=== PATIENT | female | born 1945 | race Caucasian/White ===

== ENCOUNTER 2017-08-31 21:43 | Emergency (ER) | payer OTHER ==
[~2017-08-31] VITALS: Ht 172.7 cm; Wt 70.3 kg
[2017-08-31 21:45] VITALS: TEMP 36.7; O2SAT 99; Ht 172.7 cm; Wt 70.3 kg
[2017-08-31 23:17] LABS: BASO % 0.7 %; BASO ABS # 0.07 K/uL (0-0.2); EOS % 1.1 %; EOS ABS # 0.11 K/uL (0-0.5); HEMATOCRIT 43.5 % (37-47); HEMOGLOBIN 14.9 g/dL (12.0-16.0); IG# 0.01 K/uL (0.00-0.02); LYMPH % 11.1 %; LYMPH ABS # 1.12 K/uL (1.2-3.4); MEAN CELL VOLUME 96.5 fL (80-100); MEAN CORPUSCULAR HGB CONC 34.3 g/dl (32-36); MEAN PLATELET VOLUME 10.9 fL (7.4-10.4); MONO % 5.6 %; MONO ABS # 0.57 K/uL (0.11-0.59); NEUT % 81.4 %; NEUT ABS # 8.24 K/uL (1.4-6.5); PLATELET COUNT 213 K/uL (130-400); RED CELL DISTRIBUTION WIDTH CV 12.2 % (11.5-14.5); RED CELL DISTRIBUTION WIDTH SD 43.1 fL (36.4-46.3); WHITE BLOOD COUNT 10.12 K/uL (4.8-10.8)
[2017-08-31 23:21] LABS: PTT PATIENT 27.2 SECONDS (21.0-31.0)
[2017-08-31] MEDS ORDERED: DILT-119 PO (23:36)
[2017-08-31] MEDS ORDERED: LISI20TA3 PO (23:36)
[2017-08-31] MEDS ORDERED: SODIUM CHLORIDE 0.9% 1000ML 1,000 ML IV STA (23:37)
[2017-08-31] MEDS ORDERED: HYDR-2977 PO (23:37)
[2017-08-31] MEDS ORDERED: MULT-506 PO (23:38)
[2017-08-31] MEDS ORDERED: LEVO150T PO (23:38)
[2017-08-31] MEDS ORDERED: ASPI-232 PO (23:39)
[2017-08-31] MEDS ORDERED: ATOR10TA82 PO (23:40)
[2017-08-31 23:44] LABS: ALBUMIN 3.9 gm/dl (3.4-5.0); ALKALINE PHOSPHATASE 103 U/L (45-117); ALT/SGPT 29 U/L (12-78); BLOOD UREA NITROGEN 21 mg/dl (7-18); CALCIUM 9.8 mg/dl (8.5-10.1); CARBON DIOXIDE 25 mmol/L (21-32); CREATININE 1.06 mg/dl (0.60-1.20); GLUCOSE 118 mg/dl (70-99); TOTAL PROTEIN 7.6 gm/dl (6.4-8.2)
[2017-08-31 23:52] LABS: POTASSIUM 3.9 mmol/L (3.5-5.1); SODIUM 139 mmol/L (136-145)
--- NOTE | 2017-09-01 00:01 | EMERGENCY ROOM VISIT NOTE ---
History Report prepared by Osvaldo: Nuria Khan Under the Supervision of: Dr. Fer Felix M.D. First contact with patient: 23:26 Chief Complaint: HYPERTENSION Stated Complaint: ILLNESS History of Present Illness The patient is a 72 year old female who presents to the Emergency Room with complaints of constant hypertension starting a month ago. The patient sates that she has had recently diagnosed hypertension and that they have been treating it in an attempt to get it down. She reports that she has had certain medications increased and new ones added. She states that she thought they were working because she was feeling better this past week. The patient reports that she has been seeing cardiology because they think it may be related to a cardiac problem. She reports that she is on a heart monitor and her Cardizem has been doubled. She reports that they have tested her thyroid, a nuclear stress test, and a vascular echo that were all negative. She reports that in her labs her ACTH was high and an associate dean of students appointment is set up for a month from now. The patient states that tonight her right hand started throbbing out of nowhere and continued to get worse. She notes that she hit it earlier today, but thought nothing of it. She reports that she then went to care for her 's wound and felt like she was going to pass out. The patient complains of chills, being flushed, and shaking. The patient notes a history of Braden's and is set up to have an appointment with a career resource technician. The patient denies her hand being swollen, diarrhea, fevers, shortness of breath, change in appetite, and urinary symptoms. The patient notes that her heart rate and blood pressure were normal all her life up until a month ago. Source of History: patient Onset: a month ago Position: other (global) Quality: other (hypertension) Timing: constant Associated Symptoms: + chills, No fevers, No SOB, No diarrhea, No urinary symptoms Note: The patient complains of right hand pain, feeling like she is going to pass out , shaking, and feeling flushed. The patient denies her hand being swollen and renner in appetite. Review of Systems See HPI for pertinent positives & negatives. A total of 10 systems reviewed and were otherwise negative. Past Medical & Surgical Medical Problems: (1) HTN (hypertension) (2) Medina syndrome Family History No pertinent family history Social History Smoking Status: Never Smoker Marital Status: Housing Status: lives with significant other Occupation Status: retired Current/Historical Medications Scheduled Aspirin (Aspir-81), 81 MG PO DAILY Atorvastatin (Lipitor), 10 MG PO DAILY Diltiazem Hcl Ext Rel (Tiazac), 360 MG PO DAILY Hydralazine HCl (Hydralazine HCl), 10 MG PO TID Levothyroxine Sodium (Synthroid), 150 MCG PO DAILY Lisinopril (Prinivil), 20 MG PO BID Multivitamin (Multivitamin), 1 TAB PO DAILY Allergies Coded Allergies: No Known Allergies (Unverified , 08/31/17) Physical Exam Vital Signs Date Time Temp Pulse Resp B/P (MAP) Pulse Ox O2 Delivery O2 Flow Rate FiO2 09/01/17 03:09 74 18 132/85 97 09/01/17 02:41 80 18 138/88 97 Room Air 09/01/17 02:30 77 09/01/17 01:45 98 18 142/91 95 Room Air 09/01/17 01:30 96 18 141/97 97 Room Air 09/01/17 01:15 99 18 141/89 95 Room Air 09/01/17 01:00 99 18 141/96 96 Room Air 09/01/17 00:45 96 18 142/92 96 Room Air 09/01/17 00:32 97 18 141/92 96 Room Air 09/01/17 00:22 90 18 150/100 97 Room Air 09/01/17 00:00 97 18 156/91 98 Room Air 08/31/17 23:44 94 18 163/113 97 Room Air 08/31/17 22:47 103 20 141/103 98 Room Air 08/31/17 22:29 81 08/31/17 21:45 36.7 79 18 170/105 99 Room Air 08/31/17 21:45 99 Room Air Physical Exam GENERAL: Patient is well appearing and in no acute distress. The patient is flushed. EYES: No scleral icterus, unremarkable pupils. ENT: Mucous membranes mildly dry appearing, no nasal congestion. NECK: No masses appreciated, no meningismus, trachea is midline. RESPIRATORY: No dyspnea. Clear to auscultation and equal bilaterally. No wheeze , no rhonchi. CARDIOVASCULAR: Tachycardic rate and regular rhythm. No murmurs, rubs, gallops appreciated. GASTROINTESTINAL: Abdomen soft, nontender, no peritonitis. Bowel sounds positive. No masses appreciated. BACK: No midline tenderness, no CVA tenderness EXTREMITIES: Normal motion all extremities, no cyanosis, no edema. Erythema of bilateral hands. Good pulses. No swelling. NEUROLOGIC: Alert and oriented, no acute motor or sensory deficits, no focal weakness, cranial nerves grossly intact. SKIN: No rash, no jaundice, no diaphoresis. Medical Decision & Procedures Laboratory Results 08/31/17 22:41 Red Blood Count 4.51, Mean Corpuscular Volume 96.5, Mean Corpuscular Hemoglobin 33.0, Mean Corpuscular Hemoglobin Concent 34.3, Mean Platelet Volume 10.9, Neutrophils (%) (Auto) 81.4, Lymphocytes (%) (Auto) 11.1, Monocytes (%) (Auto) 5.6, Eosinophils (%) (Auto) 1.1, Basophils (%) (Auto) 0.7, Neutrophils # (Auto) 8.24, Lymphocytes # (Auto) 1.12, Monocytes # (Auto) 0.57, Eosinophils # (Auto) 0.11, Basophils # (Auto) 0.07 08/31/17 22:41 Test 08/31/17 22:41 08/31/17 22:45 White Blood Count 10.12 K/uL (4.8-10.8) Red Blood Count 4.51 M/uL (4.2-5.4) Hemoglobin 14.9 g/dL (12.0-16.0) Hematocrit 43.5 % (37-47) Mean Corpuscular Volume 96.5 fL (80-100) Mean Corpuscular Hemoglobin 33.0 pg (25-34) Mean Corpuscular Hemoglobin Concent 34.3 g/dl (32-36) Platelet Count 213 K/uL (130-400) Mean Platelet Volume 10.9 fL (7.4-10.4) Neutrophils (%) (Auto) 81.4 % Lymphocytes (%) (Auto) 11.1 % Monocytes (%) (Auto) 5.6 % Eosinophils (%) (Auto) 1.1 % Basophils (%) (Auto) 0.7 % Neutrophils # (Auto) 8.24 K/uL (1.4-6.5) Lymphocytes # (Auto) 1.12 K/uL (1.2-3.4) Monocytes # (Auto) 0.57 K/uL (0.11-0.59) Eosinophils # (Auto) 0.11 K/uL (0-0.5) Basophils # (Auto) 0.07 K/uL (0-0.2) RDW Standard Deviation 43.1 fL (36.4-46.3) RDW Coefficient of Variation 12.2 % (11.5-14.5) Immature Granulocyte % (Auto) 0.1 % Immature Granulocyte # (Auto) 0.01 K/uL (0.00-0.02) Activated Partial Thromboplast Time 27.2 SECONDS (21.0-31.0) Partial Thromboplastin Ratio 1.0 D-Dimer 360 ug/L FEU (0-500) Anion Gap 9.0 mmol/L (3-11) Est Creatinine Clear Calc Drug Dose 49.8 ml/min Estimated GFR () 61.6 Estimated GFR (Non- 53.2 BUN/Creatinine Ratio 19.8 (10-20) Calcium Level 9.8 mg/dl (8.5-10.1) Magnesium Level 2.4 mg/dl (1.8-2.4) Total Bilirubin 0.4 mg/dl (0.2-1) Aspartate Amino Transf (AST/SGOT) 23 U/L (15-37) Alanine Aminotransferase (ALT/SGPT) 29 U/L (12-78) Alkaline Phosphatase 103 U/L (45-117) Troponin I < 0.015 ng/ml (0-0.045) Total Protein 7.6 gm/dl (6.4-8.2) Albumin 3.9 gm/dl (3.4-5.0) Globulin 3.7 gm/dl (2.5-4.0) Albumin/Globulin Ratio 1.1 (0.9-2) Thyroid Stimulating Hormone (TSH) 1.160 uIu/ml (0.300-4.500) Free Thyroxine 1.36 ng/dl (0.80-1.60) Random Cortisol 21.42 mcg/dl Urine Color YELLOW Urine Appearance CLEAR (CLEAR) Urine pH 7.5 (4.5-7.5) Urine Specific [place] 1.009 (1.000-1.030) Urine Protein NEG (NEG) Urine Glucose (UA) NEG (NEG) Urine Ketones NEG (NEG) Urine Occult Blood NEG (NEG) Urine Nitrite NEG (NEG) Urine Bilirubin NEG (NEG) Urine Urobilinogen NEG (NEG) Urine Leukocyte Esterase TRACE (NEG) Urine WBC (Auto) 1-5 /hpf (0-5) Urine RBC (Auto) 0-4 /hpf (0-4) Urine Hyaline Casts (Auto) 1-5 /lpf (0-5) Urine Epithelial Cells (Auto) 0-5 /lpf (0-5) Urine Bacteria (Auto) NEG (NEG) Laboratory results as reviewed by me. Medications Administered Medications (Trade) Dose Ordered Sig/Coleman Route Start Time Stop Time Status Last Admin Dose Admin Sodium Chloride 1,000 ml @ 999 mls/hr Q1H1M STAT IV 08/31/17 23:37 09/01/17 00:37 DC 08/31/17 23:46 999 MLS/HR Labetalol HCl (Normodyne IV) 10 mg NOW STAT IV 09/01/17 00:04 09/01/17 00:05 DC 09/01/17 00:28 10 MG Hydralazine HCl (Apresoline Tab) 25 mg NOW STAT PO 09/01/17 02:33 09/01/17 02:35 DC 09/01/17 02:40 25 MG Hydralazine HCl (Apresoline Tab) 25 mg TID PO 09/01/17 12:00 09/01/17 12:00 DC 09/01/17 03:07 25 MG ECG Per My Interpretation Indication: syncope (near) Rate (beats per minute): 78 Rhythm: sinus rhythm Findings: no acute ischemic change, no ectopy, other (QT-c 453) ED Course 2329: The patient was evaluated in room B2. A complete history and physical exam was performed. 2337: Ordered NSS 1000 ml @ 999 mls/hr IV. 2358: Review of the patient's labs from [facility] show that her ACTH collected at 7 am was 60.4 with a normal range usually at 0-46. 0004: Ordered Labetalol HCl 10 mg IV. 0124: I reevaluated the patient and she is feeling shaky. Her heart rate runs from 95 to 110. She denies any further arm pain. 0125: Discussed the patient's case with Dr. Deleon - [facility] Hospitalist. The patient will be evaluated for further treatment and disposition. 0318: I spoke with Dr. Deleon and he will discharge the patient. Medical Decision Differential: NSR, SVT, PACs, PVCs, Cardiac Dysrhythmia, Endocrine Dysfunction, Electrolyte/Metabolic Abnormality, Pulmonary Embolism, Infectious, GI, amonst other pathologies entertained. 72 yr old female arrives for evaluation of hypertension despite triple antihypertensive therapy as outpatient. Only minor BP issues until about a month ago and BP rapidly trending up requiring multiple more medications added. She has elevated ACTH and Cortisol with normal cardiac work-up, normal electrolytes and no evidence infectious etiology. Dimer negative and without significant SOB thus I do not feel that CT indicated. I suspect this is pituitary issues and have asked hospitalist to evaluate here who feel discharge reasonable. Patient stable and looks well. She is ambulating without difficulty and after Labetalol her BP has improved. HR still a bit on high side. She feels comfortable with going home and will have outpatient endocrine evaluation. Aware can RTED at any time if worsening or other concerns. Medication Reconcilliation Current Medication List: was personally reviewed by me Blood Pressure Screening Patient's blood pressure: Elevated blood pressure Will be further monitored by the hospitalist. Consults Time Called: 0124 Consulting Physician: Dr. Adrienne Armenta Hospitalist Returned Call: 0125 Discussed the patient's case with Dr. Adrienne Armenta Hospitalist. The patient will be evaluated for further treatment and disposition. Impression Primary Impression: Hypertensive crisis Additional Impression: Endocrine disorder Scribe Attestation The scribe's documentation has been prepared under my direction and personally reviewed by me in its entirety. I confirm that the note above accurately reflects all work, treatment, procedures, and medical decision making performed by me. Departure Information Dispostion Being Evaluated By Hospitalist Referrals No Doctor, Assigned (PCP) Patient Instructions My [facility] Problem Qualifiers
[2017-09-01] MEDS ORDERED: LABETALOL HCL IV 5 MG/ML 20ML IV STA (00:04)
[2017-09-01 00:08] LABS: AST/SGOT 23 U/L (15-37)
[2017-09-01] MEDS ORDERED: EMPTY 8 DRAM VIAL ONE (03:05)
[2017-09-01 03:09] VITALS: BP 132/85; PULSE 74; O2SAT 97
--- NOTE | 2017-09-01 07:09 | DIAGNOSTIC IMAGING REPORT ---
SINGLE VIEW CHEST CLINICAL HISTORY: Hypertension. FINDINGS: An AP, portable, upright chest radiograph is obtained. No prior studies are available for comparison at the time of dictation. The examination is degraded by portable technique and patient rotation. An electronic device partially obscures the left upper chest. The heart is mildly enlarged. The pulmonary vasculature is noncongested. Nonspecific interstitial thickening is likely chronic. No airspace consolidation or large pleural effusion is identified. No pneumothorax is seen. The skeletal structures are osteopenic. The bony thorax is grossly intact. IMPRESSION: Mild cardiac enlargement with no acute cardiopulmonary abnormality. Electronically signed by: Florentino Henley M.D. 09/01/2017 7:08 AM Dictated Date/Time: 09/01/2017 7:07 AM
--- NOTE | 2017-09-01 07:23 | INTERNAL MEDICINE CONSULTATION ---
DATE OF CONSULTATION: 09/01/[address] Barrera. REASON FOR CONSULTATION: Patient seen at the request of Dr. Felix for evaluation of hypertension. HISTORY OF PRESENT ILLNESS: History obtained from patient and records. Medical history significant for hypertension, paroxysmal AFib status post ablation, Raynaud's disease, hyperlipidemia, history of skin cancer as per records. The last 3 months, patient's blood pressure uncontrolled for unclear reasons. She used to just on lisinopril monotherapy for years. About 3 months ago, SBP noted to be 180s. Lisinopril increased in dose, later hydralazine and Cardizem were added. Outpatient cortisol, ACTH elevated. Outpatient Endocrinology referral contemplated. Outpatient stress test was negative. Patient saw her linseed cake trimmer on follow up last week. Home BP 140-180/80-100 at home despite taking meds. Admits to being anxious and jittery, intermittent palpitations. Concern about recurrent AFib as a reason for worsening symptoms. Recommend ZIO monitor in place, home Cardizem dose increased. The last 4 days BP control improved, SBP 140 to 160s. Tonight, the patient did not feel well, SBP 170s, right hand started throbbing, jittery, felt like she was going to pass out. No headache, no double vision, no chest pain, no shortness of breath. She denies dietary indiscretion or unusual stress at home. Denies NSAID intake. Denies unusual weight gain. Patient brought to the Emergency Room, SBP noted to be 170s. Patient given IV Labetalol. Patient's blood pressure currently 142/91. Patient currently comfortable. MEDICAL HISTORY: As above. No renal artery stenosis on renal vascular ultrasound. A 2D echo from July 2017 EF of 55%, LA enlargement, moderate MR. SURGERIES: She had appendectomy. HOME MEDICATIONS: Include hydralazine, diltiazem, levothyroxine, lisinopril, multivitamin, aspirin, albuterol p.r.n. ALLERGIES: No known drug allergies. FAMILY HISTORY: There is a family history of heart disease. PERSONAL SOCIAL HISTORY: Nonsmoker. No chronic intake of alcoholic beverages. Retired outpatient facility physical therapist. REVIEW OF SYSTEMS: As per HPI. All 10 systems reviewed. All other ROS negative. PHYSICAL EXAMINATION: VITAL SIGNS: Blood pressure was noted to be 170/105, later 140/80, pulse rate noted to be 79, RR 18, temperature 36.7, sats 99 on room air. GENERAL: Noted to be pleasant, comfortable, looks younger for stated age. SKIN: Normal color, warm. HEENT: [place] palpebral conjunctiva. No ptosis. Dry buccal mucosa. Flushed cheeks. NECK: Supple, nontender. CHEST: Clear to auscultation, no tenderness. HEART: Regular rate and rhythm, systolic murmur. ABDOMEN: Some distention, nontender. No obvious striae noted. EXTREMITIES: No edema. No gross deformity. No tenderness. NEUROLOGIC: Coherent. No gross focality. LABORATORY DATA: Hemoglobin was noted to be 14.9, hematocrit 40.4, white cell count 10.9, platelets 213. Sodium 139, potassium 3.9, chloride 105, CO2 25, BUN 21, creatinine 1, glucose 118. Chest x-ray as per my interpretation atelectasis. EKG as per my interpretation, rate 80, normal sinus rhythm, no ischemia, PRWP. ASSESSMENT: Hypertensive urgency suboptimal blood pressure control in the last 3 months. Possible secondary cause of hypertension (endocrine) with abnormal outpatient adrenocorticotropic hormone, cortisol levels. BP improved after initial ER intervention RECOMMENDATIONS: Patient given option of inpatient observation for follow-up eval by her [facility] linseed cake trimmer or discharge home on adjusted medication regimen. She opted for the latter. Increase hydralazine from 10 mg to 25 mg by PO t.i.d. dosing. Continue current Lisinopril, Cardizem doses. Daily BP log. Follow up with PCP next week for scheduled follow-up visit. Return to ER for uncontrolled blood pressure, chest pain, shortness of breath, headaches. Facilitate outpatient Endocrinology referral for abnormal outpatient serum ACTH , cortisol test results. Case d/w with Dr. Garcia ([facility] linseed cake trimmer on-call) who is agreement with the plan of care. Patient expressed understanding and was amenable to recommendations. Thank you very much for this consultation. [email or web address]
== END 2017-09-01 03:09 | disposition home or self-care (01) ==
LOC: C.EDB 21:45
DX: I16.9 Hypertensive crisis, unspecified (principal); E34.9 Endocrine disorder, unspecified; I73.00 Raynaud's syndrome without gangrene; Z79.82 Long term (current) use of aspirin

== ENCOUNTER → 2017-09-07 | Outpatient (CLI) | payer OTHER ==
[~2017-09-07] MED LIST: ASPI-232 PO; ATOR10TA82 PO; DILT-119 PO; HYDR-2977 PO; LEVO150T PO; LISI20TA3 PO; MULT-506 PO
== END | disposition home or self-care (01) ==
LOC: C.LAB1850 10:16
PROVIDERS: ATTEND Physician Assistant
DX: R11.0 Nausea (principal)

== ENCOUNTER → 2017-10-06 | Outpatient (CLI) | payer OTHER | END | disposition home or self-care (01) | LOC: C.LAB1850 07:25 | PROVIDERS: ATTEND Internal Medicine Endocrinology, Diabetes & Metabolism | DX: I10 Essential (primary) hypertension (principal) ==